=== PATIENT | female | born 1990 ===

== ENCOUNTER 2017-05-19 13:27 | Emergency (ER) | payer OTHER ==
[2017-05-19 13:28] VITALS: BMI 28.0
[2017-05-19 13:39] VITALS: BP 131/87; PULSE 73; RESP 16; TEMP 98.2; O2SAT 99
--- NOTE | 2017-05-19 14:07 | C.PDOC ---
History Of Present Illness Pt c/o eye redness, L>R. 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 History/Exam Limitations: language barrier Onset/Duration Of Symptoms: Days (3) Current Symptoms Are (Timing): Still Present Injury To Eye?: No Severity: Moderate Quality: "Pain" Wears Contact Lens?: No Associated Symptoms: Itching, Discharge From Eye, Other (Redness) Additional History Per: Prior Records Past Medical History Reviewed: Historical Data, Nursing Documentation, Vital Signs Vital Signs: Last Vital Signs Temp 98.2 F 05/19/17 13:38 Pulse 73 05/19/17 13:38 Resp 16 05/19/17 13:38 BP 131/87 05/19/17 13:38 Pulse Ox 99 05/19/17 13:38 - Medical History PMH: No Chronic Diseases Surgical History: No Surg Hx - [facility] Procedures DELIVERY OF PRODUCTS OF CONCEPTION, EXTERNAL APPROACH (11/17/15) INTRODUCTION OF SERUM/TOX/VACCINE INTO MUSCLE, PERC APPROACH (11/17/15) REPAIR FEMALE PERINEUM, EXTERNAL APPROACH (11/17/15) Family History: States: Unknown Family Hx - Social History Hx Alcohol Use: No Hx Substance Use: No - Immunization History Hx Tetanus Toxoid Vaccination: No Hx Influenza Vaccination: No Hx Pneumococcal Vaccination: No Review Of Systems Except As Marked, All Systems Reviewed And Found Negative. Constitutional: Negative for: Weakness Eyes: Positive for: Pain, Conjunctivae Inflammation, Redness. Negative for: Vision Change ENT: Negative for: Nose Congestion, Throat Pain Cardiovascular: Negative for: Chest Pain Respiratory: Negative for: Cough, Shortness of Breath Gastrointestinal: Negative for: Vomiting, Abdominal Pain Musculoskeletal: Negative for: Neck Pain Skin: Negative for: Rash Neurological: Negative for: Weakness, Numbness, Seizures, Altered Mental Status Physical Exam - Physical Exam Appears: Non-toxic, No Acute Distress Skin: Normal Color, Warm, Dry, No Rash Head: Atraumatic, Normacephalic Eye(s): bilateral: PERRL, EOMI, Other (Conjunctival injection L>R) Neck: Normal ROM, Supple Lymphatic: No Adenopathy Cardiovascular: Rhythm Regular Respiratory: Normal Breath Sounds, No Accessory Muscle Use Extremity: Normal ROM Neurological/Psych: Oriented x3, Normal Motor, Normal Sensation ED Course And Treatment O2 Sat by Pulse Oximetry: 99 Pulse Ox Interpretation: Normal Disposition Counseled Patient/Family Regarding: Diagnosis, Need For Followup, Rx Given - Disposition Referrals: Jaswinder Jha MD [Staff Provider] - [facility] [Outside] Disposition: HOME/ ROUTINE Disposition Time: 14:08 Condition: STABLE Additional Instructions: Follow up with an drafter electrical (eye doctor) within 2 days. Return to the ER if you develop change in vision, worsening of symptoms or if you have any other concerns. Prescriptions: Tobramycin 0.3% [Tobrex 0.3% Ophth Soln] 2 drop OP QID #1 bottle Instructions: Conjunctivitis (ED) Forms: [employer] (Afghan) Print Language: BRAZILIAN - Clinical Impression Clinical Impression: Conjunctivitis, acute
== END 2017-05-19 14:35 | disposition home or self-care (01) ==
LOC: C.ER 13:27
DX: H10.33 Unspecified acute conjunctivitis, bilateral (principal)

== ENCOUNTER 2017-10-11 17:47 | Emergency (ER) | payer OTHER ==
[2017-10-11 17:48] VITALS: BMI 28.0
[2017-10-11] MEDS ORDERED: Sodium Chloride 0.9% 1,000 ML IV STA (18:34)
--- NOTE | 2017-10-11 18:47 | C.PDOC ---
History Of Present Illness 27 year old female who is, P:2, presents to the ER with a complaint of vaginal spotting for the past 4 days with heavy vaginal bleeding today, associated with suprapubic pain. Patient's LMP was 08/24/17; denies fever, chills, nausea, or vomiting. Time Seen by Provider: 10/11/17 18:17 Chief Complaint (Nursing): Female Genitourinary History Per: Patient History/Exam Limitations: no limitations Onset/Duration Of Symptoms: Days Current Symptoms Are (Timing): Still Present Recent travel outside of the [place]: No Past Medical History Reviewed: Historical Data, Nursing Documentation, Vital Signs Vital Signs: Last Vital Signs Temp 98 F 10/11/17 17:55 Pulse 91 H 10/11/17 17:55 Resp 18 10/11/17 17:55 BP 137/88 10/11/17 17:55 Pulse Ox 99 10/11/17 18:53 - Medical History PMH: No Chronic Diseases - [facility] Procedures DELIVERY OF PRODUCTS OF CONCEPTION, EXTERNAL APPROACH (11/17/15) INTRODUCTION OF SERUM/TOX/VACCINE INTO MUSCLE, PERC APPROACH (11/17/15) REPAIR FEMALE PERINEUM, EXTERNAL APPROACH (11/17/15) Family History: States: Unknown Family Hx - Social History Hx Alcohol Use: No Hx Substance Use: No - Immunization History Hx Tetanus Toxoid Vaccination: No Hx Influenza Vaccination: No Hx Pneumococcal Vaccination: No Review Of Systems Except As Marked, All Systems Reviewed And Found Negative. Gastrointestinal: Positive for: Abdominal Pain (Suprapubic). Negative for: Nausea, Vomiting Genitourinary: Positive for: Vaginal Bleeding Physical Exam - Physical Exam Additional Physical Exam Comments: Constitutional: No acute distress. Head: Normocephalic. Atraumatic. Eyes: PERRL. ENT: Moist mucous membranes. Neck: Supple. Cardiovascular: Regular rate. Radial pulses 2+ bilaterally. Chest: No tenderness. Respiratory: Clear to auscultation bilaterally. GI: Soft. Nontender. Nondistended. Back: No CVA tenderness. Musculoskeletal: No tenderness or swelling of extremities. Skin: No rash. Neurologic: Alert, no focal deficit. ED Course And Treatment - Laboratory Results Result Diagrams: 10/11/17 18:49 10/11/17 18:49 O2 Sat by Pulse Oximetry: 99 (Room air) Pulse Ox Interpretation: Normal Medical Decision Making Medical Decision Making: Plan: * Blood work * Urinalysis * Transvaginal US * IV fluids IMPRESSION: Thickened heterogeneous endometrium, no intrauterine or ectopic gestation identified Correlation with serial beta hCG levels advised Will discharge, repeat beta in 48 hours, return to ED immediately for worsening pain, bleeding, dyspnea, or any other problem. Disposition - Disposition Disposition: HOME/ ROUTINE Disposition Time: 21:23 Condition: STABLE Prescriptions: Nitrofurantoin Macrocrystals [Macrobid] 100 mg PO BID #14 cap Instructions: Threatened Miscarriage (ED) Forms: [employer] (Slovenian) - Clinical Impression Clinical Impression: Vaginal bleeding in - Scribe Statement The provider has reviewed the documentation as recorded by the Scribe Bayron Camp All medical record entries made by the Scribe were at my direction and personally dictated by me. I have reviewed the chart and agree that the record accurately reflects my personal performance of the history, physical exam, medical decision making, and the department course for this patient. I have also personally directed, reviewed, and agree with the discharge instructions and disposition.
[2017-10-11 18:53] LABS: BASO # 0.1 K/uL (0.0-0.2); BASO % 0.5 % (0.0-2.0); EOS # 0.3 K/uL (0.0-0.7); EOS % 2.4 % (0.0-4.0); HEMOGLOBIN 14.3 g/dL (11.0-16.0); LYMPH # 3.2 K/uL (1.0-4.3); LYMPH % 23.6 % (20.0-40.0); MEAN CELL VOLUME 80.7 fL (81.0-99.0); MEAN CORPUSCULAR HGB CONC 34.7 g/dL (33.0-37.0); MEAN PLATELET VOLUME 7.7 fL (7.2-11.7); MONO # 0.4 K/uL (0.0-0.8); MONO % 3.2 % (0.0-10.0); NEUT # 9.6 K/uL (1.8-7.0); NEUT % 70.3 % (50.0-75.0); RBC 5.12 Mil/uL (3.80-5.20); RED CELL DISTRIBUTION WIDTH 13.7 % (11.5-14.5); WHITE BLOOD COUNT 13.7 K/uL (4.8-10.8)
[2017-10-11 18:59] LABS: URINE BACTERIA OCC (<OCC); URINE BILIRUBIN NEGATIVE (NEGATIVE); URINE BLOOD 3+ (NEGATIVE); URINE CLARITY Turbid (Clear); URINE COLOR Amber (YELLOW); URINE GLUCOSE (UA) NORMAL (Normal); URINE NITRATE NEGATIVE (NEGATIVE); URINE PROTEIN 3+ mg/dL (NEGATIVE); URINE UROBILINOGEN NORMAL mg/dL (0.2-1.0)
[2017-10-11 19:00] LABS: URINE LEUKOCYTE ESTERASE 1+ Leu/uL (Negative)
[2017-10-11 19:06] LABS: ALB/GLOB RATIO 1.3 (1.0-2.1); ALBUMIN 4.6 g/dL (3.5-5.0); ALT/SGPT 49 U/L (9-52); AST/SGOT 30 U/L (14-36); BLOOD UREA NITROGEN 7 mg/dL (7-17); CALCIUM 8.9 mg/dl (8.6-10.4); GFR AFRICAN-AMERICAN > 60; GFR NON-AFRICAN AMERICAN > 60
--- NOTE | 2017-10-11 21:09 | US ---
EXAM: US First Trimester, Transabdominal CLINICAL HISTORY: 27 years old, female; Signs and symptoms; Other: Actively bleeding; Additional info: Vag bleed in ; beta-hCG 1060.20; LMP 08/24/17 TECHNIQUE: Real-time transabdominal obstetrical ultrasound of the maternal pelvis and a first trimester with image documentation. COMPARISON: There are no prior studies for comparison. FINDINGS: Uterus: Uterus is anteflexed. The uterus measures approximately 9.8 x 4.8 x 6.2 cm. Endometrium is poorly visualized . Ovaries: Right ovary could not be identified Left ovary could not be identified Free fluid: There is no free fluid. Bladder: The bladder is incompletely distended. IMPRESSION: Extremely limited by incomplete bladder distention and body habitus, nondiagnostic for early gestation EXAM: US , Transvaginal EXAM DATE/TIME: 10/11/2017 6:34 PM CLINICAL HISTORY: 27 years old, female; Signs and symptoms; Other: Actively bleeding; Additional info: Vag bleed in ; beta-hCG 1060.20; LMP 08/24/17 TECHNIQUE: Real-time transvaginal obstetrical ultrasound of the maternal pelvis and a first trimester with image documentation. Transvaginal imaging was used for better evaluation of the fetus and adnexa. COMPARISON: There are no prior studies for comparison. FINDINGS: . Uterus: Endometrium is thickened and heterogeneous, 15.9 mm in width. No endometrial fluid seen on color imaging. The cervix is closed. Ovaries: Right ovary measures approximately 3.1 x 2.4 x 2.7 cm. There are multiple small follicles. There is intraovarian blood flow. Left ovary measures approximately 3.3 x 1.5 x 2.8 cm. There are multiple small follicles. There is intraovarian blood flow.There is a 1.3 x 1.4 x 0.8 cm left paraovarian cyst. Free fluid: There is trace fluid in the cul-de-sac. IMPRESSION: Thickened heterogeneous endometrium, no intrauterine or ectopic gestation identified Correlation with serial beta hCG levels advised
[2017-10-11 21:37] VITALS: BP 128/74; PULSE 78; RESP 20; TEMP 98.2; O2SAT 98
== END 2017-10-11 21:38 | disposition home or self-care (01) ==
LOC: C.ER 17:47
DX: O46.90 Antepartum hemorrhage, unspecified, unspecified trimester (principal)
CPT/HCPCS: 76830; 76856; 80053; 81001; 84702; 85025; 86850; 86900; 87086; 96360; 99284; J7040